=== PATIENT | male | born 1985 | race American Indian/Alaskan Native ===

== ENCOUNTER 2017-10-13 18:28 | Emergency (ER) | payer OTHER ==
[2017-10-13 18:42] VITALS: BP 130/79
[2017-10-13] MEDS ORDERED: BENADRYL IV ONE (19:37)
[2017-10-13] MEDS ORDERED: REGLAN IV ONE (19:37)
--- NOTE | 2017-10-13 19:54 | Emergency Department Report ---
HPI - General Chief Complaint: Headache Time Seen by Provider: 10/13/17 19:20 - HPI HPI: Patient is a 31-year-old male who presents to ED complaining of onset of migraine headache that started earlier today. Patient states he has a history of migraine headaches and his last episode was several months ago. Patient states he has been feeling nauseous and had 1 episode of vomiting. Patient describes pain as throbbing, nonradiating, localized to frontal region of the head. Patient denies any recent trauma or loss of consciousness. He denies fevers/chills as dizziness/near the problems. Patient states he smokes tobacco but does not drink. ED Past Medical Hx - Past Medical History Hx Headaches / Migraines: Yes - Surgical History Past Surgical History?: No - Social History Smoking Status: Current Every Day Smoker Substance Use Type: None - Medications Home Medications: Home Medications Medication Instructions Recorded Confirmed Last Taken Type Ibuprofen [Motrin] 600 mg PO BID PRN #30 tablet 10/13/17 Unknown Rx Prochlorperazine [Compazine] 10 mg PO Q8HR #20 tablet 10/13/17 Unknown Rx ED Review of Systems ROS: Stated complaint: MIGRAINE HEADACHE Other details as noted in HPI Constitutional: denies: chills, fever Eyes: denies: eye pain, eye discharge, vision change ENT: denies: ear pain, throat pain Respiratory: denies: cough, shortness of breath, wheezing Cardiovascular: denies: chest pain, palpitations Endocrine: no symptoms reported Gastrointestinal: denies: abdominal pain, nausea, diarrhea Genitourinary: denies: urgency, dysuria Musculoskeletal: denies: back pain, joint swelling, arthralgia Skin: denies: rash, lesions Neurological: denies: headache, weakness, paresthesias Psychiatric: denies: anxiety, depression Hematological/Lymphatic: denies: easy bleeding, easy bruising Physical Exam - Physical Exam Vital Signs: Vital Signs 10/13/17 18:39 Temperature 98.5 F Pulse Rate 96 H Respiratory 16 Rate Blood Pressure 130/79 O2 Sat by Pulse 100 Oximetry Physical Exam: GENERAL: Alert and oriented x3, no apparent distress, Normal Gait, atraumatic. HEAD: Head is normocephalic and a-traumatic. EYES: Extra ocular muscles are intact. Pupils are equal, round, and reactive to light and accommodation. EARS: symetrical, atraumatic, non tender, ear canal clear and moderate cerumen, tympanic membrance non inflamed. gross auditory nml bilaterally. NOSE: Nose symetrical, Nontender,Nares appeared normal. MOUTH:Mouth is well hydrated and without lesions. NECK: Supple. Non edematous, . No lymphadenopathy or thyromegaly. No C-spine tenderness LUNGS: Symetrical with respiration, No wheezing, no rales or crackles, CTAB. HEART: S1, S2 present, regular rate and rhythm without murmur, no rubs, no gallops. Non tender to palpation EXTREMITIES/MUSCULOSKELETAL: No cyanosis, clubbing, rash, lesions or edema. Full ROM bilaterally. NEUROLOGIC: The patient is cooperative with no focal neurologic deficits. Cranial nerves II through XII are grossly intact. Normal speech. Normal sensation in bilateral upper and lower extremities, No loss of sensation, firm grasp bilaterally . GCS 15. SKIN: Warm and dry, No lesions, No ulceration or induration present. ED Course Vital Signs 10/13/17 18:39 Temperature 98.5 F Pulse Rate 96 H Respiratory 16 Rate Blood Pressure 130/79 O2 Sat by Pulse 100 Oximetry ED Medical Decision Making - Medical Decision Making 31-year-old male presents with onset of migraine headache ED course: Patient received Reglan and Benadryl IV ED. I discussed the patient to follow up with primary care physician. I discussed home trial of Compazine to help with his headaches. I discussed with the patient if any worsening symptoms to return to the ED. Vital signs are normal patient is in no acute distress patient is neurologically intact and shows no neuro deficit. Patient states he let's get a work note to return to work tomorrow as he was not able to go to work today due to to his headache. Critical care attestation.: If time is entered above; I have spent that time in minutes in the direct care of this critically ill patient, excluding procedure time. ED Disposition Clinical Impression: Migraine headache with aura Qualifiers: Status migrainosus presence: without status migrainosus Intractability: not intractable Qualified Code(s): G43.109 - Migraine with aura, not intractable, without status migrainosus Disposition: - TO HOME OR SELFCARE Is pt being admited?: No Does the pt Need Aspirin: No Condition: Stable Instructions: Acute Headache (ED), Migraine Headache (ED) Prescriptions: Ibuprofen [Motrin] 600 mg PO BID PRN #30 tablet PRN Reason: Pain Prochlorperazine [Compazine] 10 mg PO Q8HR #20 tablet Referrals: PRIMARY CAREMD [Primary Care Provider] - 3-5 Days BOLIVAR GONZALEZ MD [Staff Physician] - 3-5 Days [facility] [Outside] - 3-5 Days [facility] [Outside] - 3-5 Days [facility] [Outside] - 3-5 Days Forms: Accompanied Note, Work/School Release Form(ED) Time of Disposition: 20:24
== END 2017-10-13 20:37 | disposition home or self-care (01) ==
LOC: ED 18:28
DX: G43.109 Migraine with aura, not intractable, without status migrainosus (principal); F17.200 Nicotine dependence, unspecified, uncomplicated
CPT/HCPCS: 96374; 96375; 99282; J1200; J2765